=== PATIENT | male | born 1955 | race American Indian/Alaskan Native ===

== ENCOUNTER 2019-03-15 08:08 | Day surgery (SDC) | payer BC ==
[~2019-03-15 08:08] MED LIST: WATER FOR IRRIG STERILE 1,000 ML BOTTLE ONE; WATER FOR IRRIG STERILE 250 ML BOTTLE IR ONE
[2019-03-15] MEDS ORDERED: SODIUM CHLORIDE 0.9% 1000 ML 1,000 ML ONE (08:29)
[2019-03-15] MEDS ORDERED: LIDOCAINE MPF (2%) 20 MG/1 ML VIAL 5 ML ONE (08:30)
[2019-03-15] MEDS ORDERED: SODIUM CHLORIDE 0.9% 1000 ML 1,000 ML IV SCH (09:00)
--- NOTE | 2019-03-15 09:21 | Anesthesia Day of Surgery ---
Anesthesia Day of Surgery - Day of Surgery Patient Examined: Yes Patient H&P Reviewed: Yes Patient is NPO: Yes
--- NOTE | 2019-03-15 09:21 | Anesthesia Consultation ---
Anesthesia Consult and Med Hx Date of service: 03/15/19 - Airway Anesthetic Teeth Evaluation: Good ROM Head & Neck: Adequate Mental/Hyoid Distance: Adequate Mallampati Class: Class I - Pulmonary Exam CTA: Yes - Cardiac Exam Cardiac Exam: RRR - Pre-Operative Health Status ASA Pre-Surgery Classification: ASA2 Proposed Anesthetic Plan: MAC - Pulmonary Hx Smoking: Yes SOB: Yes - Cardiovascular System Hx Hypertension: Yes - Central Nervous System Hx Neuromuscular Disorder: No Hx Psychiatric Problems: No - Gastrointestinal Hx Gastroesophageal Reflux Disease: No - Endocrine Hx Renal Disease: No Hx Non-Insulin Dependent Diabetes: Yes (Pre-diabetic) - Hematic Hx Anemia: No - Other Systems Hx Alcohol Use: Yes (DAILY SCOTCH / BEER) Hx Substance Use: Yes (SMOKER/1PPD) Hx Cancer: Yes
[2019-03-15] MEDS ORDERED: PROPOFOL 200 MG/20 ML VIAL IV ONE ×2 (09:28→09:29)
[2019-03-15 11:16] VITALS: BP 114/78
--- NOTE | 2019-03-15 11:17 | Operative Report ---
Operative Report Operative Report: Colonoscopy with Snare polypectomy, Submucosal injection with elevation of polyp and hemoclip application, Multiple Hot Biopsy Polypectomies, Ablation of colon polyps. Attending physician: Washington Blanco M.D. Vessel Scrapper Helper: Washington Blanco M.D. Indication: Patient is a 63-year-old male who presents for surveillance colonoscopy. Patient has a past history of colon polyps. This colonoscopy serves to evaluate patient so that treatment may be directed based on the findings. Consent: Informed consent was obtained after advising the patient and family regarding nature of this procedure, its indications, potential benefits as well as possible complications including but not limited to bleeding perforation and adverse reaction to medication, infection as well as other cardiopulmonary complications. An informed written and verbal consent was then obtained after due opportunity was provided for questions and answers. Monitoring: Patient was monitored continuously with pulse oximetry and electrocardiographic recordings as well as blood pressure recordings. Vital signs remained stable throughout this procedure with no untoward events. Preoperative assessment: Patient was assessed immediately prior to this procedure for capacity to tolerate monitored anesthesia care and moderate sedation as well as general anesthesia. Patient's ASA classification is 2, Mallampati class is 2, Hyomental distance is 3. Instrument: Olympus video colonoscope.: CF-HQ 190L Medications: Propofol given intravenously in divided doses. For details please refer to anesthesia records. Description of procedure: Patient was placed in the left lateral decubitus position after achieving sedation, a digital rectal examination was performed following which the colonoscope was introduced into the anal verge and advanced to the cecum which was identified by the cecal valve, the appendiceal orifice, as well as by the cecal strap and direct transillumination. The colonoscope was subsequently withdrawn with careful inspection of all mucosal surfaces. Patient tolerated this procedure well and was subsequently taken to the recovery room. The following findings were noted. Findings: The Herman prep scale score was 4. Patient was deemed to have an inadequate colonoscopic preparation due to significant retained stool in the cecum, ascending colon descending colon and sigmoid colon. Patient had 3 sessile polyps seen in the ascending colon measuring about 5-7 mm. These were removed by hot biopsy polypectomy and polyp ablation. Patient had a flat 1-1.5 cm polyp in the descending colon. This was elevated with submucosal injection of saline and removed by snare electrocautery and retrieved. A Hemoclip was applied at the polypectomy site to close the defect There were scattered diverticula, of moderate severity seen in the sigmoid colon and descending colon and ascending colon. On the retroflexed view at the anal verge, patient was noted to have internal hemorrhoids. Impression: Descending colon polyp status post submucosal injection and snare polypectomy. Ascending colon polyps status post multiple hot biopsy polypectomies and polyp ablation Diverticular disease of the colon. Internal hemorrhoids. Retained stool. Plan: Follow pathology report. High-fiber diet. Consider repeat colonoscopy in one year due to retained stool.
--- NOTE | 2019-03-15 11:18 | Discharge Summary ---
Short Stay Discharge Plan Activity: advance as tolerated Weight Bearing Status: Weight Bear as Tolerated Diet: regular Follow up with: DEV MONSON MD [Primary Care Provider] - 7 Days
--- NOTE | 2019-03-15 13:41 | Post Anesthesia Evaluation ---
- Post Anesthesia Evaluation Patient Participated: Yes Airway Patent: Yes Stable Respiratory Function: Yes Nausea/Vomiting: No Temp > 96.8F: Yes Pain Manageable: Yes Adequeate Hydration: Yes Anesthesia Complications: No Block Receding Appropriately: Not Applicable Patient on Ventilator: No
== END 2019-03-15 08:09 | disposition home or self-care (01) ==
LOC: GIO 08:08
PROVIDERS: ATTEND Internal Medicine Gastroenterology
DX: Z12.11 Encounter for screening for malignant neoplasm of colon (principal); D12.2 Benign neoplasm of ascending colon; D12.4 Benign neoplasm of descending colon; K57.30 Diverticulosis of large intestine without perforation or abscess without bleeding; K64.8 Other hemorrhoids; E78.00 Pure hypercholesterolemia, unspecified; I10 Essential (primary) hypertension; E11.9 Type 2 diabetes mellitus without complications; F17.210 Nicotine dependence, cigarettes, uncomplicated; Z86.010 Personal history of colon polyps; Z79.899 Other long term (current) drug therapy; Z79.84 Long term (current) use of oral hypoglycemic drugs; Z79.82 Long term (current) use of aspirin; Z85.46 Personal history of malignant neoplasm of prostate; Z72.89 Other problems related to lifestyle; Z98.890 Other specified postprocedural states; Z90.6 Acquired absence of other parts of urinary tract; Z88.8 Allergy status to other drugs, medicaments and biological substances
CPT/HCPCS: 45381; 45384; 45385; 82962; 88305; J2704; J7030